=== PATIENT | male | born 1955 | race Two or more races ===

== ENCOUNTER 2016-05-09 10:15 | Outpatient (CLI) | payer MEDICARE, OTHER | END 2016-05-09 23:59 | disposition home or self-care (01) | LOC: WOU 10:15 | PROVIDERS: ATTEND Podiatrist Foot & Ankle Surgery | DX: I83.223 Varicose veins of left lower extremity with both ulcer of ankle and inflammation (principal); L97.329 Non-pressure chronic ulcer of left ankle with unspecified severity; L89.623 Pressure ulcer of left heel, stage 3; I96 Gangrene, not elsewhere classified; I83.892 Varicose veins of left lower extremity with other complications; Z99.3 Dependence on wheelchair; G89.4 Chronic pain syndrome; Z86.718 Personal history of other venous thrombosis and embolism; M19.172 Post-traumatic osteoarthritis, left ankle and foot; S82.892S Other fracture of left lower leg, sequela; X58.XXXS Exposure to other specified factors, sequela; M48.02 Spinal stenosis, cervical region | CPT/HCPCS: 11042; 11045; A6253; A6402 ×2 ==

== ENCOUNTER 2016-05-16 09:16 | Outpatient (CLI) | payer MEDICARE, OTHER | END 2016-05-16 23:59 | disposition home or self-care (01) | LOC: WOU 09:16 | PROVIDERS: ATTEND Podiatrist Foot & Ankle Surgery | DX: I83.028 Varicose veins of left lower extremity with ulcer other part of lower leg (principal); L97.823 Non-pressure chronic ulcer of other part of left lower leg with necrosis of muscle; G89.4 Chronic pain syndrome; L89.623 Pressure ulcer of left heel, stage 3; L97.829 Non-pressure chronic ulcer of other part of left lower leg with unspecified severity; Z86.718 Personal history of other venous thrombosis and embolism; Z86.19 Personal history of other infectious and parasitic diseases; Z99.3 Dependence on wheelchair; M19.172 Post-traumatic osteoarthritis, left ankle and foot; T14.8 Other injury of unspecified body region; X58.XXXS Exposure to other specified factors, sequela; M48.00 Spinal stenosis, site unspecified; M24.672 Ankylosis, left ankle | CPT/HCPCS: 11043; 11046; A6253; A6402 ×2 ==

== ENCOUNTER 2016-05-23 08:38 | Outpatient (CLI) | payer MEDICARE, OTHER | END 2016-05-23 23:59 | LOC: WOU 08:38 | PROVIDERS: ATTEND Podiatrist Foot & Ankle Surgery | DX: I83.028 Varicose veins of left lower extremity with ulcer other part of lower leg (principal); G89.4 Chronic pain syndrome; Z86.718 Personal history of other venous thrombosis and embolism; Z86.19 Personal history of other infectious and parasitic diseases; Z99.3 Dependence on wheelchair; M19.172 Post-traumatic osteoarthritis, left ankle and foot; T14.8 Other injury of unspecified body region; X58.XXXS Exposure to other specified factors, sequela; M48.00 Spinal stenosis, site unspecified; M24.672 Ankylosis, left ankle; L97.821 Non-pressure chronic ulcer of other part of left lower leg limited to breakdown of skin; L89.623 Pressure ulcer of left heel, stage 3; Z87.891 Personal history of nicotine dependence | CPT/HCPCS: 11042; 11045; A6253; A6402 ==

== ENCOUNTER 2016-06-04 09:56 | Outpatient (CLI) | payer MEDICARE, OTHER | END 2016-06-04 23:59 | LOC: WOU 09:56 | PROVIDERS: ATTEND Podiatrist Foot & Ankle Surgery | DX: I87.2 Venous insufficiency (chronic) (peripheral) (principal); L97.821 Non-pressure chronic ulcer of other part of left lower leg limited to breakdown of skin; G89.4 Chronic pain syndrome; Z86.718 Personal history of other venous thrombosis and embolism; Z86.19 Personal history of other infectious and parasitic diseases; Z99.3 Dependence on wheelchair; M19.172 Post-traumatic osteoarthritis, left ankle and foot; T14.8 Other injury of unspecified body region; X58.XXXS Exposure to other specified factors, sequela; M24.672 Ankylosis, left ankle; Z87.891 Personal history of nicotine dependence; J18.9 Pneumonia, unspecified organism | CPT/HCPCS: A6253; A6402; G0463 ==

== ENCOUNTER 2016-06-24 09:44 | Outpatient (CLI) | payer MEDICARE, OTHER | END 2016-06-24 23:59 | disposition home or self-care (01) | LOC: WOU 09:44 | PROVIDERS: ATTEND Podiatrist Foot & Ankle Surgery | DX: I83.023 Varicose veins of left lower extremity with ulcer of ankle (principal); L97.821 Non-pressure chronic ulcer of other part of left lower leg limited to breakdown of skin; G89.4 Chronic pain syndrome; Z86.718 Personal history of other venous thrombosis and embolism; Z86.19 Personal history of other infectious and parasitic diseases; Z99.3 Dependence on wheelchair; M19.172 Post-traumatic osteoarthritis, left ankle and foot; T14.8 Other injury of unspecified body region; X58.XXXS Exposure to other specified factors, sequela; M24.672 Ankylosis, left ankle; Z87.891 Personal history of nicotine dependence; L22 Diaper dermatitis; L89.623 Pressure ulcer of left heel, stage 3; G62.9 Polyneuropathy, unspecified | CPT/HCPCS: 11042; 11045; A6253; A6402 ==

== ENCOUNTER 2016-07-01 09:19 | Outpatient (CLI) | payer MEDICARE, OTHER | END 2016-07-01 23:59 | LOC: WOU 09:19 | PROVIDERS: ATTEND Podiatrist Foot & Ankle Surgery | DX: I87.2 Venous insufficiency (chronic) (peripheral) (principal); L97.821 Non-pressure chronic ulcer of other part of left lower leg limited to breakdown of skin; L89.623 Pressure ulcer of left heel, stage 3; Z87.891 Personal history of nicotine dependence; Z99.3 Dependence on wheelchair; G89.4 Chronic pain syndrome; M48.02 Spinal stenosis, cervical region; Z86.718 Personal history of other venous thrombosis and embolism; Z86.19 Personal history of other infectious and parasitic diseases | CPT/HCPCS: 11042; 11045; A6253; A6402 ==

== ENCOUNTER 2016-07-08 09:31 | Outpatient (CLI) | payer MEDICARE, OTHER | END 2016-07-08 23:59 | LOC: WOU 09:31 | PROVIDERS: ATTEND Podiatrist Foot & Ankle Surgery | DX: I83.023 Varicose veins of left lower extremity with ulcer of ankle (principal); L97.321 Non-pressure chronic ulcer of left ankle limited to breakdown of skin; L89.623 Pressure ulcer of left heel, stage 3; I83.899 Varicose veins of unspecified lower extremity with other complications; G89.4 Chronic pain syndrome; M19.172 Post-traumatic osteoarthritis, left ankle and foot; T14.90 Injury, unspecified; Z99.3 Dependence on wheelchair; Z87.891 Personal history of nicotine dependence; M48.02 Spinal stenosis, cervical region; Z86.19 Personal history of other infectious and parasitic diseases; I10 Essential (primary) hypertension | CPT/HCPCS: 11042; 11045; A6253; A6402 ==

== ENCOUNTER 2016-10-14 08:43 | Outpatient (CLI) | payer MEDICARE, OTHER | END 2016-10-14 23:59 | disposition home or self-care (01) | LOC: WOU 08:43 | PROVIDERS: ATTEND Podiatrist Foot & Ankle Surgery | DX: I87.2 Venous insufficiency (chronic) (peripheral) (principal); L97.321 Non-pressure chronic ulcer of left ankle limited to breakdown of skin; L97.221 Non-pressure chronic ulcer of left calf limited to breakdown of skin; L97.521 Non-pressure chronic ulcer of other part of left foot limited to breakdown of skin; L97.421 Non-pressure chronic ulcer of left heel and midfoot limited to breakdown of skin; S90.811A Abrasion, right foot, initial encounter; X58.XXXA Exposure to other specified factors, initial encounter; Y92.89 Other specified places as the place of occurrence of the external cause; G83.10 Monoplegia of lower limb affecting unspecified side; Z87.891 Personal history of nicotine dependence; G89.4 Chronic pain syndrome; Z86.718 Personal history of other venous thrombosis and embolism; Z99.3 Dependence on wheelchair; R60.0 Localized edema; M19.172 Post-traumatic osteoarthritis, left ankle and foot; M48.00 Spinal stenosis, site unspecified; I96 Gangrene, not elsewhere classified | CPT/HCPCS: 11042; 97597; A6402; A6253 ==

== ENCOUNTER 2016-10-21 10:00 | Outpatient (CLI) | payer MEDICARE, OTHER | END 2016-10-21 23:59 | disposition home or self-care (01) | LOC: WOU 10:00 | PROVIDERS: ATTEND Podiatrist Foot & Ankle Surgery | DX: I87.2 Venous insufficiency (chronic) (peripheral) (principal); L97.321 Non-pressure chronic ulcer of left ankle limited to breakdown of skin; L97.521 Non-pressure chronic ulcer of other part of left foot limited to breakdown of skin; S90.112A Contusion of left great toe without damage to nail, initial encounter; X58.XXXA Exposure to other specified factors, initial encounter; Y92.129 Unspecified place in nursing home as the place of occurrence of the external cause; G83.10 Monoplegia of lower limb affecting unspecified side; Z87.891 Personal history of nicotine dependence; G89.4 Chronic pain syndrome; Z86.718 Personal history of other venous thrombosis and embolism; Z99.3 Dependence on wheelchair; R60.0 Localized edema; M19.172 Post-traumatic osteoarthritis, left ankle and foot; M48.00 Spinal stenosis, site unspecified | CPT/HCPCS: 10140; 11042; A6253; A6402 ==

== ENCOUNTER 2016-10-28 09:45 | Outpatient (CLI) | payer MEDICARE, OTHER | END 2016-10-28 23:59 | disposition home or self-care (01) | LOC: WOU 09:45 | PROVIDERS: ATTEND Podiatrist Foot & Ankle Surgery | DX: I87.2 Venous insufficiency (chronic) (peripheral) (principal); L97.521 Non-pressure chronic ulcer of other part of left foot limited to breakdown of skin; G83.10 Monoplegia of lower limb affecting unspecified side; Z87.891 Personal history of nicotine dependence; G89.4 Chronic pain syndrome; Z86.718 Personal history of other venous thrombosis and embolism; Z99.3 Dependence on wheelchair; R60.0 Localized edema; M19.172 Post-traumatic osteoarthritis, left ankle and foot; M48.00 Spinal stenosis, site unspecified; S90.212A Contusion of left great toe with damage to nail, initial encounter; X58.XXXA Exposure to other specified factors, initial encounter; Y92.89 Other specified places as the place of occurrence of the external cause; B35.3 Tinea pedis; B35.1 Tinea unguium; L97.829 Non-pressure chronic ulcer of other part of left lower leg with unspecified severity | CPT/HCPCS: 10140; 11042; 87070-TC; A6253; A6402 ==